=== PATIENT | male | born 1990 | race Two or more races ===

== ENCOUNTER 2018-09-12 03:43 | Emergency (ER) | payer SELFPAY ==
[~2018-09-12] VITALS: Ht 172.7 cm; Wt 62.1 kg
[2018-09-12 06:29] VITALS: BP 130/82
[2018-09-12 06:52] LABS: Alcohol, Urine < 3.0 mg/dL (0-5); Amphetamine Screen, Urine NEGATIVE (NEGATIVE); Barbiturate Scree,Urine NEGATIVE (NEGATIVE); Benzodiazephine Screen, Urine NEGATIVE (NEGATIVE); Cannabinoid Screen, Urine POSITIVE (NEGATIVE); Cocaine Screen, Urine NEGATIVE (NEGATIVE); Opiate Scree,Urine NEGATIVE (NEGATIVE); Phencyclidine Screen, Urine NEGATIVE (NEGATIVE)
[2018-09-12] MEDS ORDERED: MIRT15TA3 PO (06:58)
[2018-09-12] MEDS ORDERED: HYDR-4296 PO (07:00)
[2018-09-12] MEDS ORDERED: CITA10TA70 PO (07:00)
[2018-09-12] MEDS ORDERED: BUSP10TA90 PO (07:00)
[2018-09-12] MEDS ORDERED: BUSP5TAB51 PO (07:00)
== END 2018-09-12 07:16 | disposition home or self-care (01) ==
LOC: ER 03:48
DX: F12.10 Cannabis abuse, uncomplicated (principal)
CPT/HCPCS: 80307

== ENCOUNTER 2018-09-13 14:30 | Emergency (ER) | payer SELFPAY ==
[~2018-09-13] VITALS: Ht 180.3 cm; Wt 62.1 kg
[~2018-09-13 14:30] MED LIST: BUSP10TA90 PO; BUSP5TAB51 PO; CITA10TA70 PO; HYDR-4296 PO; MIRT15TA3 PO
[2018-09-13 14:44] VITALS: BP 134/86
== END 2018-09-13 14:50 | disposition left against medical advice (07) ==
LOC: ER 14:30 → EDBD 14:30 → ER 14:50
DX: R45.851 Suicidal ideations (principal); Z53.21 Procedure and treatment not carried out due to patient leaving prior to being seen by health care provider

== ENCOUNTER 2024-11-18 15:54 | Emergency (ER) | payer MEDICAID, OTHER ==
[~2024-11-18] VITALS: Ht 170.2 cm; Wt 68.1 kg
[~2024-11-18 15:54] MED LIST changes: +CITA10TA5 PO; -CITA10TA70 PO; -HYDR-4296 PO; +HYDR25TA88 PO; -MIRT15TA3 PO; +MIRT1TAB38 PO
[2024-11-18 16:03] VITALS: BP 139/92; PULSE 90; RESP 17; O2SAT 98
--- NOTE | 2024-11-18 16:45 | ED.PDOC ---
HPI Comments 34 y.o male presents to the ED via EMS for a chief complaint of substernal chest pain that presented today. Patient describes pain as a burning sensation, is constant, non radiating and rating a 2/10 on the pain scale. Patient received one dose of NTG by EMS which brought pain down to a mild 1/10. Patient denies any cardiac history, SOB, nausea, vomiting, chills, fever or leg swelling. Chief Complaint: Chest Pain Time Seen by MD: 16:34 Primary Care Provider: DR LAZO Reviewed Notes: Nurses Notes, Medications, Allergies Allergies: Coded Allergies: NO KNOWN ALLERGIES (Unverified , 09/12/18) Home Meds Reported Medications Citalopram Hydrobromide (Citalopram Hydrobromide) 10 Mg Tab, 10 MG PO DAILY for 30 Days, MG 09/12/18 Hydralazine Hcl (Hydralazine Hcl) 25 Mg Tab, 25 MG PO QID for 30 Days, MG 09/12/18 Buspirone Hcl (Buspirone Hcl) 10 Mg Tab, 10 MG PO HS for 30 Days, MG 09/12/18 Buspirone Hcl (Buspirone Hcl) 5 Mg Tab, 5 MG PO Q12HR for 30 Days, MG 09/12/18 Mirtazapine (Mirtazapine Oral Disintegrating Tablet) 15 Mg Tab, 15 MG PO HS, TAB 09/12/18 Information Source: Patient Mode of Arrival: EMS Severity: Moderate Timing: Hours Duration: Since onset Location: Substernal Radiation: No Radiation Quality: Burning Onset: At Rest Cardiac Risk Factors: None PE Risk Factors: None History of: None Modifying Factors: Nothing Past Medical History PAST MEDICAL HISTORY: Anxiety, Depression, Schizophrenia Family History Family History: Unknown Social History Smoker: Non-Smoker Alcohol: Denies ETOH Use Drugs: Marijuana Lives In: Home Constitutional: denies: chills, diaphoresis, fatigue, fever, malaise, sweats, weakness, others EENTM: denies: blurred vision, double vision, ear bleeding, ear discharge, ear drainage, ear pain, ear ringing, eye pain, eye redness, hearing loss, mouth pain , mouth swelling, nasal discharge, nose bleeding, nose congestion, nose pain, photophobia, tearing, throat pain, throat swelling, voice changes, others Respiratory: denies: cough, hemoptysis, orthopnea, SOB at rest, shortness of breath, SOB with excertion, stridor, wheezing, others Cardiovascular: reports: chest pain; denies: dizzy spells, diaphoresis, Dyspnea on exertion, edema, irregular heart beat, left arm pain, lightheadedness, palpitations, PND, syncope, others Gastrointestinal: denies: abdomen distended, abdominal pain, blood streaked bowels, constipated, diarrhea, dysphagia, difficulty swallowing, hematemesis, melena, nausea, poor appetite, poor fluid intake, rectal bleeding, rectal pain, vomiting, others Genitourinary: denies: burning, dysuria, flank pain, frequency, hematuria, incontinence, penile discharge, penile sore, pain, testicle pain, testicle swelling, urgency, others Neurological: denies: dizziness, fainting, headache, left sided numbness, left sided weakness, numbness, paresthesia, pre-existing deficit, right sided numbness, right sided weakness, seizure, speech problems, tingling, tremors, weakness, others Musculoskeletal: denies: back pain, gout, joint pain, joint swelling, muscle pain, muscle stiffness, neck pain, others Integumetry: denies: bruises, change in color, change in hair/nails, dryness, laceration, lesions, lumps, rash, wounds, others Allergic/Immunocompromised: denies: Difficulty Healing, Frequent Infections, Hives, Itching, others Hematologic/Lymphatic: denies: anemia, blood clots, easy bleeding, easy bruising, swollen glands, others Endocrine: denies: excessive hunger, excessive sweating, excessive thirst, excessive urination, flushing, intolerance to cold, intolerance to heat, unexplained weight gain, unexplained weight loss, others Psychiatric: denies: anxiety, bipolar disorder, depression, hopeless, panic disorder, schizophrenia, sleepless, suicidal, others All Other Systems: Reviewed and Negative Physical Exam General Appearance: No Apparent Distress, Normal HEENT: Normal ENT Inspection, Pharynx Normal, TMs Normal Neck: Full Range of Motion, Non-Tender, Normal, Normal Inspection Respiratory: Chest Non-Tender, Lungs Clear, No Accessory Muscle Use, No Respiratory Distress, Normal Breath Sounds Cardiovascular: No Edema, No JVD, No Murmur, No Gallop, Normal Peripheral Pulses, Regular Rate/Rhythm Breast Exam: Deferred Gastrointestinal: No Organomegaly, Non Tender, No Pulsatile Mass, Normal Bowel Sounds, Soft Genitalia: Deferred Pelvic: Deferred Rectal: Deferred Extremities: No calf tenderness, Normal capillary refill, Normal inspection, Normal range of motion, Non-tender, No pedal edema Musculoskeletal : Apperance: Normal Neurologic: Alert, energy crop farmer II-XII nml as Tested, No Motor Deficits, Normal Affect, Normal Mood, No Sensory Deficits Cerebellar Function: Normal Reflexes: Normal Skin: Dry, Normal Color, Warm Lymphatic: No Adenopathy Was a procedure done? Was a procedure done?: No CP Differential Dx Differential Diagnosis: N/A Differential Diagnosis: Angina, Chest Wall Pain, Esophageal reflux/spasm, Gastritis, Myocardial Infarction, Pericarditis X-Ray, Labs, Meds, VS Vital Signs Date Time Temp Pulse Resp B/P (MAP) Pulse Ox O2 Delivery O2 Flow Rate FiO2 11/18/24 16:03 98.1 90 17 139/92 (108) 98 11/18/24 16:00 72 Lab Test 11/18/24 16:48 Range/Units Sodium Level Pending Potassium Level Pending Chloride Level Pending Carbon Dioxide Level Pending Anion Gap Pending Blood Urea Nitrogen Pending Creatinine Pending Glomerular Filtration Rate Calc Pending BUN/Creatinine Ratio Pending Serum Glucose Pending Calcium Level Pending Magnesium Level Pending Total Bilirubin Pending Aspartate Amino Transferase (AST) Pending Alanine Aminotransferase (ALT) Pending Alkaline Phosphatase Pending Troponin I High Sensitivity Pending Total Protein Pending Albumin Pending X-Ray, Labs, Meds, VS Comment This 34-year-old male presents secondary to midsternal chest pain I was minimal. He was given nitro and route with near-complete resolution of his symptoms. At shift change, measure his labs have not resulted. Patient was signed out to the oncoming physician for final disposition Time of 1ST Reevaluation: 16:40 Reevaluation 1ST: Unchanged Patient Education/Counseling: Diagnosis, Treatment, Prognosis Family Education/Counseling: No Family Present Additional Information The following tests were ordered, and results were reviewed by me: LAB, CXR, EKG I reviewed and agreed with the following test results read by other providers:CXR I discussed treatment and results with medical personnel and patient [address] [address] Ph: [phone] DIAGNOSTIC IMAGING Diagnostic Imaging Report : [id number] Signed PATIENT: YAEL NAYAK ACCT: [id number] UNIT: [id number] : 1990 LOC: ER ROOM / BED: / AGE / SEX: 34 / M ADM STATUS: REG ER SERVICE 16 ORDERING PHYSICIAN: TANMAY PATEL MD PROCEDURE(s): CXRP - CHEST PORTABLE REASON: COUGH ORDER NUMBER(s): [id number], ACCESSION NUMBER(s): [id number] CHEST PORTABLE, HISTORY: COUGH COMPARISON: None None TECHNICAL DATA: 1 view of the chest was obtained. FINDINGS: Lines and tubes: None Cardiomediastinal silhouette: normal Pulmonary vasculature: normal Lung expansion: normal Lung airspace: normal Lung interstitium: normal Pleura: normal Pneumothorax: no Bones: Unremarkable Other: no IMPRESSION: No acute intrathoracic abnormality. ATED BY: ARNAUD QUINTERO MD DICTATED DATE/TIME: 11/18/24 164 SIGNED BY: ARNAUD QUINTERO MD SIGNED DATE/TIME: 11/18/24 164 CC: Critical Care Note Critical Care Time?: No Stability Stability form required: No Heart Score Heart Score: Heart Score Response (Comments) Value History N/A 0 EKG Normal 0 Age <45 0 Risk Factors No known risk factors 0 Troponin N/A 0 Total 0 I personally scribed for TANMAY PATEL MD ([email or web address]) on 11/18/24 at 16:45. Electronically submitted by Lori Mittal ([email or web address]). I personally scribed for TANMAY PATEL MD ([email or web address]) on 11/18/24 at 17:36. Electronically submitted by Lori Mittal ([email or web address]). TANMAY PATEL MD Nov 18, 2024 16:45
[2024-11-18 18:01] LABS: Alanine Aminotransferase 39 U/L (7-40); Albumin 4.7 g/dL (3.2-4.8); Alkaline Phosphatase 83 U/L (46-116); Anion Gap 5 (5-15); Aspartate Aminotransferase 22 U/L (13-40); BUN/Creatinine Ratio 8.6 (10.0-20.0); Bilirubin, Total 0.4 mg/dL (0.2-1.0); Blood Urea Nitrogen 9 mg/dL (9-23); Calcium 10.1 mg/dL (8.7-10.4); Chloride 103 mmol/L (98-107); Magnesium 2.3 mg/dL (1.6-2.6); Potassium 3.9 mmol/L (3.5-5.1); Sodium 139 mmol/L (136-145); Total Protein 7.9 g/dL (5.7-8.2)
[2024-11-18 18:25] LABS: Basophils # (auto) 0 10 ^3/uL (0-0.2); Eosinophils # (auto) 0.1 10 ^3/uL (0-0.8); Eosinophils % (auto) 2.1 % (0.0-7.0); Hematocrit 52.3 % (41.0-53.0); Hemoglobin 17.5 g/dL (13.5-17.5); Lymphocytes # (auto) 1.6 10 ^3/uL (0.4-5.4); Mean Corpuscular Hemoglobin 30.2 pg (28.0-32.0); Mean Corpuscular Hgb Conc. 33.5 g/dL (32.0-36.0); Mean Corpuscular Volume 90.1 fL (80.0-100.0); Monocytes # (auto) 0.4 10 ^3/uL (0-1.3); Monocytes % (auto) 8.4 % (0.0-12.0); Neutrophils # (auto) 2.6 10 ^3/uL (1.6-8.6); Neutrophils % (auto) 54.5 % (37.0-80.0); Nucleated Red Blood Cells % 0.1 %; Platelet Count (auto) 187 10^3/uL (140-450); Red Cell Distribution Width 14.1 % (11.8-14.3); White Blood Cell 4.8 10^3/uL (4.4-10.8)
[2024-11-18 18:49] LABS: Carbon Dioxide 31 mmol/L (20-31); Glucose 122 mg/dL (74-106)
[2024-11-18 20:30] LABS: INR 1.07 (0.9-1.15); Partial Thromboplastin Time 29.5 SEC (24.5-34.5); Prothrombin Time 11.3 sec (9.3-11.8)
--- NOTE | 2024-11-22 13:07 | ECG ---
[facility] Test Date: 2024-11-18 Test Time: 15:58:17 Pat Name: YAEL GREER Department: ED Room: Gender: M Communicable Disease Specialist: AARON : 1990 Requested By: JANNIE HDZ Order Number: [id number] Reading MD: Ankit Mas Measurements Intervals [place] Rate: 72 P: 66 MO: 140 QRS: 73 QRSD: 78 T: 57 QT: 360 QTc: 394 Interpretive Statements Sinus rhythm ST elev, probable normal early repol pattern Baseline wander in lead(s) V6 Electronically Signed On 11-22-2024 22:14:53 PST by Ankit aMs Please click the below link to view image of tracing.
== END 2024-11-18 23:33 | disposition home or self-care (01) ==
LOC: EDUNIT# 15:54 → EDBD 15:54 → ER 16:11
DX: R07.89 Other chest pain (principal); F32.A Depression, unspecified; F20.9 Schizophrenia, unspecified; F41.9 Anxiety disorder, unspecified; Z79.899 Other long term (current) drug therapy
CPT/HCPCS: 36415; 71045; 80053; 83735; 83880; 84484; 85025; 85379; 85610; 85730; 93005

== ENCOUNTER 2025-05-10 12:31 | Emergency (ER) | payer MEDICAID ==
[~2025-05-10] VITALS: Ht 172.7 cm; Wt 70.0 kg
--- NOTE | 2025-05-10 13:55 | ED.PDOC ---
History of Present Illness HPI Comments 34-year-old male presents with a chief complaint of back pain x 1.5 weeks. Patient states that his pain is localized to his midthoracic region, nonradiating, describes as sharp, and states that his pain is intermittent. Patient denies traumatic injury to his back. Patient reports that he has chronic back pain. Patient has been self-medicating with ibuprofen 600mg BID. Denies history of chronic steroid use or history of osteoporosis Denies any history of cancer Denies fevers chills night sweats nausea vomiting unintentional weight loss Denies IV drug use history of HIV/TB Denies abdominal "tearing" pain Denies syncope Denies urinary incontinence or urinary changes Denies numbness tingling of the groin or inner thigh Denies previous back procedure or surgery Chief Complaint: Back Pain Time Seen by MD: 13:41 Primary Care Provider: EVANGELISTA Yadav Notes: Nurses Notes, Medications, Allergies Allergies: Coded Allergies: NO KNOWN ALLERGIES (Unverified , 09/12/18) Home Meds Active Scripts Lidocaine (LIDODERM 5% TOPICAL PATCH) 1 Patch Ph, 1 PATCH TOP DAILY for 30 Days, #30 PATCH 0 Refills Prov:CLAUDIA WONG NP 05/10/25 Methocarbamol (Methocarbamol) 500 Mg Tab, 500 MG PO Q8HP PRN for 10 Days, #30 TAB 0 Refills Prov:CLAUDIA WONG NP 05/10/25 Reported Medications Citalopram Hydrobromide (Citalopram Hydrobromide) 10 Mg Tab, 10 MG PO DAILY for 30 Days, MG 09/12/18 Hydralazine Hcl (Hydralazine Hcl) 25 Mg Tab, 25 MG PO QID for 30 Days, MG 09/12/18 Buspirone Hcl (Buspirone Hcl) 10 Mg Tab, 10 MG PO HS for 30 Days, MG 09/12/18 Buspirone Hcl (Buspirone Hcl) 5 Mg Tab, 5 MG PO Q12HR for 30 Days, MG 09/12/18 Mirtazapine (Mirtazapine Oral Disintegrating Tablet) 15 Mg Tab, 15 MG PO HS, TAB 09/12/18 Information Source: Patient Mode of Arrival: Ambulatory Severity: Moderate Timing: Days Duration: Since onset Prehospital treatment: None Past Medical History PAST MEDICAL HISTORY: Anxiety, Depression, Schizophrenia Family History Family History: Unknown Social History Smoker: Non-Smoker Alcohol: Denies ETOH Use Drugs: Marijuana Lives In: Home Constitutional: denies: chills, diaphoresis, fatigue, fever, malaise, sweats, weakness, others EENTM: denies: blurred vision, double vision, ear bleeding, ear discharge, ear drainage, ear pain, ear ringing, eye pain, eye redness, hearing loss, mouth pain, mouth swelling, nasal discharge, nose bleeding, nose congestion, nose pain, photophobia, tearing, throat pain, throat swelling, voice changes, others Respiratory: denies: cough, hemoptysis, orthopnea, SOB at rest, shortness of breath, SOB with excertion, stridor, wheezing, others Cardiovascular: denies: chest pain, dizzy spells, diaphoresis, Dyspnea on exertion, edema, irregular heart beat, left arm pain, lightheadedness, palpitations, PND, syncope, others Gastrointestinal: denies: abdomen distended, abdominal pain, blood streaked bowels, constipated, diarrhea, dysphagia, difficulty swallowing, hematemesis, melena, nausea, poor appetite, poor fluid intake, rectal bleeding, rectal pain, vomiting, others Genitourinary: denies: burning, dysuria, flank pain, frequency, hematuria, incontinence, penile discharge, penile sore, pain, testicle pain, testicle swelling, urgency, others Neurological: denies: dizziness, fainting, headache, left sided numbness, left sided weakness, numbness, paresthesia, pre-existing deficit, right sided numbness, right sided weakness, seizure, speech problems, tingling, tremors, weakness, others Musculoskeletal: reports: back pain; denies: gout, joint pain, joint swelling, muscle pain, muscle stiffness, neck pain, others Integumetry: denies: bruises, change in color, change in hair/nails, dryness, laceration, lesions, lumps, rash, wounds, others Allergic/Immunocompromised: denies: Difficulty Healing, Frequent Infections, Hives, Itching, others Hematologic/Lymphatic: denies: anemia, blood clots, easy bleeding, easy bruising, swollen glands, others Endocrine: denies: excessive hunger, excessive sweating, excessive thirst, excessive urination, flushing, intolerance to cold, intolerance to heat, unexpla ined weight gain, unexplained weight loss, others Psychiatric: denies: anxiety, bipolar disorder, depression, hopeless, panic disorder, schizophrenia, sleepless, suicidal, others All Other Systems: Reviewed and Negative Physical Exam General Appearance: No Apparent Distress, Normal HEENT: Normal ENT Inspection, Pharynx Normal, TMs Normal Neck: Full Range of Motion, Non-Tender, Normal, Normal Inspection Respiratory: Chest Non-Tender, Lungs Clear, No Accessory Muscle Use, No Respiratory Distress, Normal Breath Sounds Cardiovascular: No Murmur, No Gallop, Regular Rate/Rhythm Breast Exam: Deferred Gastrointestinal: No Organomegaly, Non Tender, No Pulsatile Mass, Normal Bowel Sounds, Soft Genitalia: Deferred Pelvic: Deferred Rectal: Deferred Extremities: No calf tenderness, Normal capillary refill, Normal inspection, Normal range of motion, Non-tender, No pedal edema Musculoskeletal : Apperance: Normal Neurologic: Alert, r&d engineer II-XII nml as Tested, No Motor Deficits, Normal Affect, Normal Mood, No Sensory Deficits Cerebellar Function: Normal Reflexes: Normal Skin: Dry, Normal Color, Warm Lymphatic: No Adenopathy Was a procedure done? Was a procedure done?: No Differential Dx Considerations may include: Musculoskeletal, strain X-Ray, Labs, Meds, VS Vital Signs Date Time Temp Pulse Resp B/P (MAP) Pulse Ox O2 Delivery O2 Flow Rate FiO2 05/10/25 14:01 78 16 97 Room Air 05/10/25 14:01 98.7 78 16 111/83 (92) 97 98.7 05/10/25 12:41 98.7 78 16 111/83 (92) 97 98.7 Current Medications Medications (Trade) Dose Ordered Sig/Vinh Route Start Time Stop Time Status Last Admin Ketorolac Tromethamine (Toradol Injection) 60 mg ONCE ONCE IM 05/10/25 14:00 05/10/25 14:01 DC 05/10/25 14:08 Acetaminophen/ Hydrocodone Bitart ([place] 7.5/325MG Tab) 1 tab ONCE ONCE PO 05/10/25 14:00 05/10/25 14:01 DC 05/10/25 14:08 X-Ray, Labs, Meds, VS Comment 34-year-old male presents with a chief complaint of back pain x 1.5 weeks. Patient arrives alert and oriented, ABC's intact, afebrile, vital signs stable, saturating well in room air I considered cauda equina, spinal cord compression, vertebral malignancy/mets, acute spinal fracture, vertebral osteomyelitis, epidural abscess, infected or obstructed kidney stone, however this is less likely as the patient does not present with lower back pain red flags symptoms such as bowel or bladder dysfunction, saddle anesthesia, paresthesia, and without any history of m alignancy or recent back trauma or spinal interventions. Therefore further imaging studies were not indicated on today's visit. Presentation most consistent with nonemergent musculoskeletal etiology versus nonemergent disc herniation. Disposition: Discharge. Strict return precautions discussed with the patient with full understanding. Supportive care advised (rest, ice, heat, NSAIDs, stretching exercises) Massage muscles with cold pack or ice for 20 minutes 4 times per day. Usually most useful if there is swelling during the first 48 hours Heating pad on the most painful area for 20 minutes to relieve muscle spasm Sleep and the most comfortable sleeping position (usually on the side with knees bent) Light stretching, no strenuous activity, avoid frequent bending, avoid carrying heavy objects Discussed possible benefits of yoga and acupuncture Return precautions discussed including Inability to walk/bear weight Paresthesia/weakness/leg pain Fecal/urinary incontinence Any worsening symptoms Additional MDM Review of External, Non-ED records: External records reviewed. Discussion with independent historian (EMS, family) history obtained from the patient/parents (if applicable) at bedside Chronic conditions affecting care: None Social determinants of health affecting care: None Consideration of admission (observation or admission): I considered escalation of care to admission for this patient, however given the reassuring workup, the patient is safe for outpatient management. Time of 1ST Reevaluation: 14:11 Reevaluation 1ST: Unchanged Patient Education/Counseling: Diagnosis, Treatment, Prognosis Family Education/Counseling: No Family Present SEPSIS Sepsis Screen Date sepsis recognized/suspect: May 10, 2025 Time Sepsis recognized/suspect: 1236 Recent Procedure: No On Antibiotic Therapy: No Respiratory Rate >20: No Heart Rate >90: No Temp<36 C (96.8 F) or >38.3 C: No SBP <90 or MAP <65 mmHG: No New Acute Mental Status Change: No Is the patient on CPAP, BIPAP,: No Orders/Vitals/Labs Vital Signs Date Time Temp Pulse Resp B/P (MAP) Pulse Ox O2 Delivery O2 Flow Rate FiO2 05/10/25 14:01 78 16 97 Room Air 05/10/25 14:01 98.7 78 16 111/83 (92) 97 98.7 05/10/25 12:41 98.7 78 16 111/83 (92) 97 98.7 Departure 1 Departure Time of Disposition: 14:09 Impression: Primary Impression: Dorsalgia Disposition: 01 HOME / SELF CARE / HOMELESS Condition: Stable e-Prescriptions Lidocaine (LIDODERM 5% TOPICAL PATCH) 1 Patch Ph 1 PATCH TOP DAILY for 30 Days, #30 PATCH 0 Refills Prov: CLAUDIA WONG NP 05/10/25 Methocarbamol (Methocarbamol) 500 Mg Tab 500 MG PO Q8HP PRN for 10 Days, #30 TAB 0 Refills Prov: CLAUDIA WONG NP 05/10/25 Discharged With: Self Critical Care Note Critical Care Time?: No Stability Stability form required: No Heart Score Heart Score: Heart Score Response (Comments) Value History N/A 0 EKG N/A 0 Age N/A 0 Risk Factors N/A 0 Troponin N/A 0 Total 0 I personally scribed for CLAUDIA WONG NP ([email or web address]) on 05/10/25 at 13:55. Electronically submitted by Zan Oliveira ([email or web address]). CLAUDIA WONG NP May 10, 2025 13:55
[2025-05-10 14:01] VITALS: BP 111/83; PULSE 78; RESP 16; TEMP 98.7; O2SAT 97
[2025-05-10] MEDS: KETOROLAC TROMETH 60MG/2ML VIAL IM ONE (14:08)
[2025-05-10] MEDS: HYDROcodone-ACET 7.5/325MG TAB PO ONE (14:08)
[2025-05-10] MEDS ORDERED: LIDO5DIS21 TOP (14:10)
[2025-05-10] MEDS ORDERED: METH-1181 PO (14:10)
== END 2025-05-10 14:21 | disposition home or self-care (01) ==
LOC: ER 12:31
DX: G89.29 Other chronic pain (principal); M54.9 Dorsalgia, unspecified; F41.9 Anxiety disorder, unspecified; F32.A Depression, unspecified; F20.9 Schizophrenia, unspecified; Z79.899 Other long term (current) drug therapy
CPT/HCPCS: 96372; 99283; J1885

== ENCOUNTER 2025-05-12 05:21 | Emergency (ER) | payer MEDICAID ==
[~2025-05-12] VITALS: Ht 188 cm; Wt 68.0 kg
[~2025-05-12 05:21] MED LIST changes: +LIDO5DIS21 TOP; +METH-1181 PO
--- NOTE | 2025-05-12 07:18 | ED.PDOC ---
Back pain HPI HPI Comments 34 year old male presents to the ED via EMS with a chief complaint of back pain onset today (05/12/25) about 5 hours prior to ED arrival. Patient states he has chronic back pain, noticed pain has worsen. He was seen in this ED on 05/10/25, was given medication, had slight improvement of symptoms. PMHx schizophrenia, depression, anxiety. Denies fall, injury, headache, dizziness, nausea/vomiting, numbness/tingling. No other symptoms or modifying factors present at this time. Chief Complaint: Back Pain Time Seen by MD: 07:00 Primary Care Provider: EVANGELISTA Yadav Notes: Medications, Allergies Allergies: Coded Allergies: NO KNOWN ALLERGIES (Unverified , 09/12/18) Home Meds Active Scripts Lidocaine (LIDODERM 5% TOPICAL PATCH) 1 Patch Ph, 1 PATCH TOP DAILY for 30 Days, #30 PATCH 0 Refills Prov:CLAUDIA WONG FOLDER OPERATOR 05/10/25 Methocarbamol (Methocarbamol) 500 Mg Tab, 500 MG PO Q8HP PRN for 10 Days, #30 TAB 0 Refills Prov:CLAUDIA WONG FOLDER OPERATOR 05/10/25 Reported Medications Citalopram Hydrobromide (Citalopram Hydrobromide) 10 Mg Tab, 10 MG PO DAILY for 30 Days, MG 09/12/18 Hydralazine Hcl (Hydralazine Hcl) 25 Mg Tab, 25 MG PO QID for 30 Days, MG 09/12/18 Buspirone Hcl (Buspirone Hcl) 10 Mg Tab, 10 MG PO HS for 30 Days, MG 09/12/18 Buspirone Hcl (Buspirone Hcl) 5 Mg Tab, 5 MG PO Q12HR for 30 Days, MG 09/12/18 Mirtazapine (Mirtazapine Oral Disintegrating Tablet) 15 Mg Tab, 15 MG PO HS, TAB 09/12/18 Information Source: Patient, Emergency Med Personnel Mode of Arrival: EMS Timing: Hours Duration: Since onset Location of Back pain: (B) Lower back Severity: Moderate Prehospital treatment: None Quality: Sharp Onset: Spontaneous History of: Chronic Back Pain Modifying Factors: Nothing Past Medical History PAST MEDICAL HISTORY: Anxiety, Depression, Schizophrenia Family History Family History: Unknown Social History Smoker: Non-Smoker Alcohol: Denies ETOH Use Drugs: Marijuana Lives In: Home Constitutional: denies: chills, diaphoresis, fatigue, fever, malaise, sweats, weakness, others EENTM: denies: blurred vision, double vision, ear bleeding, ear discharge, ear drainage, ear pain, ear ringing, eye pain, eye redness, hearing loss, mouth pain, mouth swelling, nasal discharge, nose bleeding, nose congestion, nose pain, photophobia, tearing, throat pain, throat swelling, voice changes, others Respiratory: denies: cough, hemoptysis, orthopnea, SOB at rest, shortness of breath, SOB with excertion, stridor, wheezing, others Cardiovascular: denies: chest pain, dizzy spells, diaphoresis, Dyspnea on exertion, edema, irregular heart beat, left arm pain, lightheadedness, palpitations, PND, syncope, others Gastrointestinal: denies: abdomen distended, abdominal pain, blood streaked bowels, constipated, diarrhea, dysphagia, difficulty swallowing, hematemesis, melena, nausea, poor appetite, poor fluid intake, rectal bleeding, rectal pain, vomiting, others Genitourinary: denies: burning, dysuria, flank pain, frequency, hematuria, incontinence, penile discharge, penile sore, pain, testicle pain, testicle swelling, urgency, others Neurological: denies: dizziness, fainting, headache, left sided numbness, left sided weakness, numbness, paresthesia, pre-existing deficit, right sided numb ness, right sided weakness, seizure, speech problems, tingling, tremors, weakness, others Musculoskeletal: reports: back pain; denies: gout, joint pain, joint swelling, muscle pain, muscle stiffness, neck pain, others Integumetry: denies: bruises, change in color, change in hair/nails, dryness, laceration, lesions, lumps, rash, wounds, others Allergic/Immunocompromised: denies: Difficulty Healing, Frequent Infections, Hives, Itching, others Hematologic/Lymphatic: denies: anemia, blood clots, easy bleeding, easy bruising, swollen glands, others Endocrine: denies: excessive hunger, excessive sweating, excessive thirst, excessive urination, flushing, intolerance to cold, intolerance to heat, unexplained weight gain, unexplained weight loss, others Psychiatric: denies: anxiety, bipolar disorder, depression, hopeless, panic disorder, schizophrenia, sleepless, suicidal, others All Other Systems: Reviewed and Negative Physical Exam General Appearance: No Apparent Distress, Normal HEENT: Normal ENT Inspection, Pharynx Normal, TMs Normal Neck: Full Range of Motion, Non-Tender, Normal, Normal Inspection Respiratory: Chest Non-Tender, Lungs Clear, No Accessory Muscle Use, No Respiratory Distress, Normal Breath Sounds Cardiovascular: No Edema, No JVD, No Murmur, No Gallop, Normal Peripheral Pulses, Regular Rate/Rhythm Breast Exam: Deferred Gastrointestinal: No Organomegaly, Non Tender, No Pulsatile Mass, Normal Bowel Sounds, Soft Genitalia: Deferred Pelvic: Deferred Rectal: Deferred Extremities: No calf tenderness, Normal capillary refill, Normal inspection, Normal range of motion, Non-tender, No pedal edema Musculoskeletal : Apperance: Normal Neurologic: Alert, buffing and polishing wheel repairer II-XII nml as Tested, No Motor Deficits, Normal Affect, Normal Mood, No Sensory Deficits Cerebellar Function: Normal Reflexes: Normal Skin: Dry, Normal Color, Warm Lymphatic: No Adenopathy Was a procedure done? Was a procedure done?: No Back Pain Differential Dx Differential Diagnosis: Musculoskeletal Pain X-Ray, Labs, Meds, VS Vital Signs Date Time Temp Pulse Resp B/P (MAP) Pulse Ox O2 Delivery O2 Flow Rate FiO2 05/12/25 07:32 98.1 05/12/25 07:24 63 16 97 Room Air 05/12/25 07:24 98.1 63 16 125/81 (96) 97 98.1 05/12/25 05:26 98.3 62 16 134/85 (101) 99 98.3 Current Medications Medications (Trade) Dose Ordered Sig/Vinh Route Start Time Stop Time Status Last Admin Acetaminophen (Tylenol Tablet) 650 mg ONCE ONCE PO 05/12/25 07:15 05/12/25 07:16 DC 05/12/25 07:[address] [address] Ph: [phone] DIAGNOSTIC IMAGING Diagnostic Imaging Report : [id number] Signed PATIENT: YAEL GREERACCT: [id number] UNIT: [id number] : 1990 LOC: ER ROOM / BED: / AGE / SEX: 34 / M ADM STATUS: REG ER SERVICE 5 ORDERING PHYSICIAN: MAGNO MERCADO MD PROCEDURE(s): LUMB2 - LUMBAR SPINE 3 VIEW REASON: lumbar pain ORDER NUMBER(s): [id number], ACCESSION NUMBER(s): [id number] INDICATION: lumbar pain COMPARISON: None TECHNIQUE: 2 views of the lumbar spine were obtained. FINDINGS: The lumbar vertebral alignment is normal. The intervertebral disc spaces are well-maintained. No significant facet arthropathy is noted. No acute fracture, vertebral compression deformity or aggressive osseous le sions. The paravertebral soft tissues are grossly unremarkable. IMPRESSION: 1. No acute fracture. ATED BY: JASMYN ROE MD DICTATED DATE/TIME: 05/12/25801 SIGNED BY: JASMYN ROE MD SIGNED DATE/TIME: 05/12/25801 CC: Time of 1ST Reevaluation: 07:30 Reevaluation 1ST: Unchanged Patient Education/Counseling: Diagnosis, Treatment, Prognosis Family Education/Counseling: No Family Present SEPSIS Sepsis Screen Date sepsis recognized/suspect: May 12, 2025 Time Sepsis recognized/suspect: 527 Recent Procedure: No On Antibiotic Therapy: No Respiratory Rate >20: No Heart Rate >90: No Temp<36 C (96.8 F) or >38.3 C: No SBP <90 or MAP <65 mmHG: No New Acute Mental Status Change: No Is the patient on CPAP, BIPAP,: No Physician Orders Lumbar Spine 3 View (05/12/25 07:06) Cyclobenzaprine Tablet (Flexeril Tablet) (05/12/25 08:45) Vital Signs Date Time Temp Pulse Resp B/P (MAP) Pulse Ox O2 Delivery O2 Flow Rate FiO2 05/12/25 07:32 98.1 05/12/25 07:24 63 16 97 Room Air 05/12/25 07:24 98.1 63 16 125/81 (96) 97 98.1 05/12/25 05:26 98.3 62 16 134/85 (101) 99 98.3 Medications Medications Dose Ordered Sig/Vinh Route Start Time Stop Time Status Last Admin Dose Admin Acetaminophen 650 mg ONCE ONCE PO 05/12/25 07:15 05/12/25 07:16 DC 05/12/25 07:32 Departure 1 Departure Time of Disposition: 08:43 (Patient has a lumbar strain. We will discharge patient home with outpatient follow up) Impression: Primary Impression: Acute lumbar myofascial strain Qualified Codes: S39.012A - Strain of muscle, fascia and tendon of lower back, initial encounter Disposition: HOME / SELF CARE / HOMELESS Condition: Stable Referrals: SERA GUTIERREZ MD Additional Instructions: You likely have musculoskeletal strain. You were referred to our spine doctor. Please call for an appointment. For pain you can take the followinam: Ibuprofen 400mg with food Noon: Acetaminophen 1000mg 4pm: Ibuprofen 400mg with food 8pm: Acetaminophen 1000mg Your prescribed muscle relaxers. Please take as directed. You should follow up with your regular doctor within one week to ensure you are doing better. If your symptoms worsen or you have any other concerns then please return to the ER. e-Prescriptions Cyclobenzaprine Hcl (Cyclobenzaprine Hcl) 5 Mg Tab 1 TAB PO TID PRN for 5 Days, #15 TAB Prov: MAGNO MERCADO MD 05/12/25 Discharged With: Self Critical Care Note Critical Care Time?: No Stability Stability form required: No I personally scribed for MAGNO MERCADO MD ([email or web address]) on 05/12/25 at 07:18. Electronically submitted by Hien Hubbard ([email or web address]). I personally scribed for MAGNO MERCADO MD ([email or web address]) on 05/12/25 at 08:31. Electronically submitted by Hien Hubbard ([email or web address]). MAGNO MERCADO MD May 12, 2025 07:18
[2025-05-12] MEDS: ACETAMINOPHEN 325 MG TAB PO ONE (07:32)
--- NOTE | 2025-05-12 08:04 | DVH ---
INDICATION: lumbar pain COMPARISON: None TECHNIQUE: 2 views of the lumbar spine were obtained. FINDINGS: The lumbar vertebral alignment is normal. The intervertebral disc spaces are well-maintained. No significant facet arthropathy is noted. No acute fracture, vertebral compression deformity or aggressive osseous lesions. The paravertebral soft tissues are grossly unremarkable. IMPRESSION: 1. No acute fracture.
[2025-05-12] MEDS ORDERED: CYCL-837 PO (08:45)
[2025-05-12] MEDS: CYCLOBENZAPRINE HCL 10 MG TAB PO ONE (09:15)
[2025-05-12 09:28] VITALS: BP 127/82; PULSE 82; RESP 17; TEMP 97.6; O2SAT 100
== END 2025-05-12 09:32 | disposition home or self-care (01) ==
LOC: EDBD 05:21 → ER 05:21
DX: S39.012A Strain of muscle, fascia and tendon of lower back, initial encounter (principal); G89.29 Other chronic pain; F20.9 Schizophrenia, unspecified; F32.A Depression, unspecified; F12.90 Cannabis use, unspecified, uncomplicated; F41.9 Anxiety disorder, unspecified; Z79.899 Other long term (current) drug therapy; X58.XXXA Exposure to other specified factors, initial encounter; Y93.89 Activity, other specified; Y92.89 Other specified places as the place of occurrence of the external cause; Y99.8 Other external cause status
CPT/HCPCS: 72100

== ENCOUNTER 2025-05-24 09:54 | Emergency (ER) | payer MEDICAID ==
[~2025-05-24] VITALS: Ht 172.7 cm; Wt 65.0 kg
[~2025-05-24 09:54] MED LIST changes: +CYCL-837 PO
--- NOTE | 2025-05-24 10:06 | ECG ---
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
--- NOTE | 2025-05-24 10:49 | ED.PDOC ---
History of Present Illness HPI Comments 34 year old male with a Social Hx of Marijuana abuse presents to the ED for the c/c of Chest pain. Pt states that he has had CP for the past 1x week but has since worsened last night prompting his visit to the ED. Pt states that he is having Left Sided non-radiating,tight cp, with associated SOB, and confusion that took place last night. No other symptoms or modifying factors reported at this time. Patient is alert and oriented x4 and has a stable gait. Chief Complaint: Chest Pain Time Seen by MD: 10:46 Primary Care Provider: EVANGELISTA Reviewed Notes: Nurses Notes, Medications, Allergies Allergies: Coded Allergies: NO KNOWN ALLERGIES (Unverified , 09/12/18) Home Meds Active Scripts Cyclobenzaprine Hcl (Cyclobenzaprine Hcl) 5 Mg Tab, 1 TAB PO TID PRN for 5 Days, #15 TAB Prov:MAGNO MERCADO MD 05/12/25 Lidocaine (LIDODERM 5% TOPICAL PATCH) 1 Patch Ph, 1 PATCH TOP DAILY for 30 Days, #30 PATCH 0 Refills Prov:CLAUDIA WONG NP 05/10/25 Methocarbamol (Methocarbamol) 500 Mg Tab, 500 MG PO Q8HP PRN for 10 Days, #30 T AB 0 Refills Prov:CLAUDIA WONG NP 05/10/25 Reported Medications Citalopram Hydrobromide (Citalopram Hydrobromide) 10 Mg Tab, 10 MG PO DAILY for 30 Days, MG 09/12/18 Hydralazine Hcl (Hydralazine Hcl) 25 Mg Tab, 25 MG PO QID for 30 Days, MG 09/12/18 Buspirone Hcl (Buspirone Hcl) 10 Mg Tab, 10 MG PO HS for 30 Days, MG 09/12/18 Buspirone Hcl (Buspirone Hcl) 5 Mg Tab, 5 MG PO Q12HR for 30 Days, MG 09/12/18 Mirtazapine (Mirtazapine Oral Disintegrating Tablet) 15 Mg Tab, 15 MG PO HS, TAB 09/12/18 Information Source: Patient Mode of Arrival: Ambulatory Severity: Mild Timing: Hours Duration: Since onset, Hours Prehospital treatment: None Past Medical History PAST MEDICAL HISTORY: Anxiety, Depression, Schizophrenia Family History Family History: No family hx of DM Social History Smoker: Non-Smoker Alcohol: Sober Drugs: Marijuana Lives In: Home Constitutional: denies: chills, diaphoresis, fatigue, fever, malaise, sweats, weakness, others EENTM: denies: blurred vision, double vision, ear bleeding, ear discharge, ear drainage, ear pain, ear ringing, eye pain, eye redness, hearing loss, mouth pain, mouth swelling, nasal discharge, nose bleeding, nose congestion, nose pain, photophobia, tearing, throat pain, throat swelling, voice changes, others Respiratory: reports: SOB at rest, shortness of breath; denies: cough, hemoptysis, orthopnea, SOB with excertion, stridor, wheezing, others Cardiovascular: reports: chest pain; denies: dizzy spells, diaphoresis, Dyspnea on exertion, edema, irregular heart beat, left arm pain, lightheadedness, palpitations, PND, syncope, others Gastrointestinal: denies: abdomen distended, abdominal pain, blood streaked bowels, constipated, diarrhea, dysphagia, difficulty swallowing, hematemesis, melena, nausea, poor appetite, poor fluid intake, rectal bleeding, rectal pain, vomiting, others Genitourinary: denies: burning, dysuria, flank pain, frequency, hematuria, incontinence, penile discharge, penile sore, pain, testicle pain, testicle swelling, urgency, others Neurological: denies: dizziness, fainting, headache, left sided numbness, left sided weakness, numbness, paresthesia, pre-existing deficit, right sided numbness, right sided weakness, seizure, speech problems, tingling, tremors, weakness, others Musculoskeletal: denies: back pain, gout, joint pain, joint swelling, muscle pain, muscle stiffness, neck pain, others Integumetry: denies: bruises, change in color, change in hair/nails, dryness, laceration, lesions, lumps, rash, wounds, others Allergic/Immunocompromised: denies: Difficulty Healing, Frequent Infections, Hives, Itching, others Hematologic/Lymphatic: denies: anemia, blood clots, easy bleeding, easy bruising, swollen glands, others Endocrine: denies: excessive hunger, excessive sweating, excessive thirst, excessive urination, flushing, intolerance to cold, intolerance to heat, unexplained weight gain, unexplained weight loss, others Psychiatric: denies: anxiety, bipolar disorder, depression, hopeless, panic disorder, schizophrenia, sleepless, suicidal, others All Other Systems: Reviewed and Negative Physical Exam General Appearance: No Apparent Distress HEENT: Normal ENT Inspection, Pharynx Normal, TMs Normal Neck: Full Range of Motion, Non-Tender, Normal, Normal Inspection Respiratory: Lungs Clear, No Accessory Muscle Use, No Respiratory Distress, Normal Breath Sounds, Other (Minimal tenderness to the left chest) Cardiovascular: No Edema, No JVD, No Murmur, No Gallop, Normal Peripheral Pulses, Regular Rate/Rhythm Breast Exam: Deferred Gastrointestinal: No Organomegaly, Non Tender, No Pulsatile Mass, Normal Bowel Sounds, Soft Genitalia: Deferred Pelvic: Deferred Rectal: Deferred Extremities: No calf tenderness, Normal capillary refill, Normal inspection, Normal range of motion, Non-tender, No pedal edema Musculoskeletal : Apperance: Normal Neurologic: Alert, manager of revenue II-XII nml as Tested, No Motor Deficits, Normal Affect, Normal Mood, No Sensory Deficits Cerebellar Function: Normal Reflexes: Normal Skin: Dry, Normal Color, Warm Lymphatic: No Adenopathy Was a procedure done? Was a procedure done?: No EKG EKG : Pulse Rate (adult): 80 [place]: Normal Cardiac Rhythm: NSR Block: None Hypertrophy: None ST: Normal Differential Dx Considerations may include: Atypical chest pain, musculoskeletal pain, ACS, [place] X-Ray, Labs, Meds, VS Vital Signs Date Time Temp Pulse Resp B/P (MAP) Pulse Ox O2 Delivery O2 Flow Rate FiO2 05/24/25 11:13 98.0 74 16 135/84 (101) 97 98.0 05/24/25 11:13 74 15 97 Room Air 05/24/25 10:49 80 05/24/25 10:02 90 05/24/25 10:00 99.0 90 17 120/91 (101) 96 99.0 Lab Test 05/24/25 11:15 05/24/25 10:14 Range/Units Troponin I High Sensitivity Pending < 3 L </=54 ng/L White Blood Count 3.3 L 4.4-10.8 10^3/uL Red Blood Count 5.07 4.5-5.90 10^6/uL Hemoglobin 15.4 13.5-17.5 g/dL Hematocrit 45.0 41.0-53.0 % Mean Corpuscular Volume 88.7 80.0-100.0 fL Mean Corpuscular Hemoglobin 30.4 28.0-32.0 pg Mean Corpuscular Hemoglobin Concent 34.2 32.0-36.0 g/dL Red Cell Distribution Width 13.4 11.8-14.3 % Platelet Count 192 140-450 10^3/uL Mean Platelet Volume 8.0 6.9-10.8 fL Neutrophils (%) (Auto) 50.0 37.0-80.0 % Lymphocytes (%) (Auto) 37.3 10.0-50.0 % Monocytes (%) (Auto) 9.2 0.0-12.0 % Eosinophils (%) (Auto) 2.5 0.0-7.0 % Basophils (%) (Auto) 1.0 0.0-2.0 % Neutrophils # (Auto) 1.6 1.6-8.6 10 ^3/uL Lymphocytes # (Auto) 1.2 0.4-5.4 10 ^3/uL Monocytes # (Auto) 0.3 0-1.3 10 ^3/uL Eosinophils # (Auto) 0.1 0-0.8 10 ^3/uL Basophils # (Auto) 0 0-0.2 10 ^3/uL Nucleated Red Blood Cells 0.1 % Sodium Level 141 136-145 mmol/L Potassium Level 4.0 3.5-5.1 mmol/L Chloride Level 105 98-107 mmol/L Carbon Dioxide Level 30 20-31 mmol/L Anion Gap 6 5-15 Blood Urea Nitrogen 10 9-23 mg/dL Creatinine 1.06 0.700-1.30 mg/dL Glomerular Filtration Rate Calc 96 >90 mL/min BUN/Creatinine Ratio 9.4 L 10.0-20.0 Serum Glucose 95 74-106 mg/dL Calcium Level 9.9 8.7-10.4 mg/dL Current Medications Medications (Trade) Dose Ordered Sig/Vinh Route Start Time Stop Time Status Last Admin Aspirin 162 mg ONCE ONCE PO 05/24/25 10:45 05/24/25 10:52 DC 05/24/25 11:09 The chest x-ray is negative The patient was given aspirin 162 mg by mouth The patient's CBC is within normal limits The chemistry panel is within normal limits The troponin levels negative At this time we feel that the patient's pain is secondary to musculoskeletal pain The patient will return to the emergency department's the condition worsens. Images Reviewed?: Images reviewed and evaluated by me Time of 1ST Reevaluation: 11:16 Reevaluation 1ST: Unchanged Patient Education/Counseling: Diagnosis, Treatment, Prognosis, Need For Follow Up Family Education/Counseling: No Family Present SEPSIS Sepsis Screen Date sepsis recognized/suspect: May 24, 2025 Time Sepsis recognized/suspect: 1000 Recent Procedure: No On Antibiotic Therapy: No Respiratory Rate >20: No Heart Rate >90: No Temp<36 C (96.8 F) or >38.3 C: No SBP <90 or MAP <65 mmHG: No New Acute Mental Status Change: No Is the patient on CPAP, BIPAP,: No Physician Orders Troponin-I Hs (05/24/25 11:04) Troponin-I Hs (05/24/25 13:04) Electrocardigram (05/24/25 11:04) Electrocardigram (05/24/25 13:04) Chest Two Views Routine (05/24/25 10:45) Urinalysis (05/24/25 10:45) Drug Screen (05/24/25 10:45) Vital Signs Date Time Temp Pulse Resp B/P (MAP) Pulse Ox O2 Delivery O2 Flow Rate FiO2 05/24/25 11:13 98.0 74 16 135/84 (101) 97 98.0 05/24/25 11:13 74 15 97 Room Air 05/24/25 10:49 80 05/24/25 10:02 90 05/24/25 10:00 99.0 90 17 120/91 (101) 96 99.0 Laboratory Tests Test 05/24/25 10:14 White Blood Count 3.3 10^3/uL (4.4-10.8) L Medications Medications Dose Ordered Sig/Vinh Route Start Time Stop Time Status Last Admin Dose Admin Aspirin 162 mg ONCE ONCE PO 05/24/25 10:45 05/24/25 10:52 DC 05/24/25 11:09 Departure 1 Departure Time of Disposition: 11:31 Impression: Primary Impression: Musculoskeletal chest pain Disposition: 01 HOME / SELF CARE / HOMELESS Condition: Fair Discharged With: Self Critical Care Note Critical Care Time?: No Stability Stability form required: No Heart Score Heart Score: Heart Score Response (Comments) Value History N/A 0 EKG N/A 0 Age N/A 0 Risk Factors N/A 0 Troponin N/A 0 Total 0 I personally scribed for JANNIE HDZ MD ([email or web address]) on 05/24/25 at 10:49. Electronically submitted by Zheng Negrete ([email or web address]). JANNIE HDZ MD May 24, 2025 10:49
[2025-05-24 11:01] LABS: Chloride 105 mmol/L (98-107); Potassium 4.0 mmol/L (3.5-5.1); Sodium 141 mmol/L (136-145)
[2025-05-24 11:02] LABS: Anion Gap 6 (5-15); Carbon Dioxide 30 mmol/L (20-31)
[2025-05-24 11:03] LABS: Calcium 9.9 mg/dL (8.7-10.4)
[2025-05-24 11:07] LABS: Glucose 95 mg/dL (74-106)
[2025-05-24 11:08] LABS: BUN/Creatinine Ratio 9.4 (10.0-20.0); Blood Urea Nitrogen 10 mg/dL (9-23); Hematocrit 45.0 % (41.0-53.0); Hemoglobin 15.4 g/dL (13.5-17.5); Mean Corpuscular Hemoglobin 30.4 pg (28.0-32.0); Mean Corpuscular Volume 88.7 fL (80.0-100.0); Nucleated Red Blood Cells % 0.1 %
[2025-05-24 11:13] VITALS: BP 135/84; RESP 15; TEMP 98; O2SAT 97
--- NOTE | 2025-05-24 11:18 | DVH ---
EXAM: XY CHEST TWO VIEWS ROUTINE HISTORY: CP COMPARISON: Chest x-ray dated 11/18/2024. TECHNIQUE: Frontal and lateral views of the chest were performed. FINDINGS: No pneumothorax, pulmonary edema, pleural effusions, or consolidative infiltrates. There is mild cent ral peribronchial thickening. The heart is not enlarged. No fractures are identified about the bony thorax. IMPRESSION: Mild reactive airways disease. The lungs are otherwise clear.
[2025-05-24 11:36] VITALS: PULSE 61
--- NOTE | 2025-05-24 11:38 | ECG ---
[facility] Test Date: 2025-05-24 Test Time: 11:36:44 Pat Name: YAEL GREER Department: ER Room: Gender: M Drafter Mechanical: DAMASO : 1990 Requested By: SCOTT PICKARD Order Number: [id number] Reading MD: Measurements Intervals [place] Rate: 61 P: -23 SC: 122 QRS: 85 QRSD: 83 T: 35 QT: 370 QTc: 373 Interpretive Statements Sinus rhythm Please click the below link to view image of tracing.
== END 2025-05-24 11:43 | disposition home or self-care (01) ==
LOC: ER 09:54
DX: R07.89 Other chest pain (principal); R06.02 Shortness of breath; R14.0 Abdominal distension (gaseous); F20.9 Schizophrenia, unspecified; F32.A Depression, unspecified; F41.9 Anxiety disorder, unspecified; Z79.899 Other long term (current) drug therapy
CPT/HCPCS: 36415; 71046; 80048; 84484; 85025; 93005

== ENCOUNTER 2025-10-01 12:10 | Emergency (ER) | payer MEDICAID ==
[~2025-10-01] VITALS: Ht 182.9 cm; Wt 72.6 kg
[2025-10-01] MEDS: diazePAM 2 MG TAB PO ONE (14:36)
[2025-10-01] MEDS: ACETAMINOPHEN 325 MG TAB PO ONE (14:36)
[2025-10-01 14:38] VITALS: BP 121/78; PULSE 75; RESP 18; TEMP 99; O2SAT 98
--- NOTE | 2025-10-01 14:57 | ED.PDOC ---
History of Present Illness HPI Comments 34-year-old male presents with chief complaint of posterior neck Ed mid to low back pain. Significant history for anxiety, depression, schizophrenia, polysubstance abuse. Patient is a poor historian. He reports ongoing pain for the past few days following initial onset after "laying on [his] couch." He also states on using heating pads and [id number] ibuprofen medication to manage pain with no relief for improvement. Patient denies on having any recent trauma, prior elements, or further pertinent history events. He denies having any numbness, tingling, weakness, headache, fever, or further acute symptoms. Chief Complaint: Back Pain Time Seen by MD: 13:20 Primary Care Provider: EVANGELISTA Yadav Notes: Nurses Notes, Medications, Allergies Allergies: Coded Allergies: NO KNOWN ALLERGIES (Unverified , 09/12/18) Home Meds Active Scripts Cyclobenzaprine Hcl (Cyclobenzaprine Hcl) 5 Mg Tab, 1 TAB PO TID for 7 Days, #21 TAB Prov:MAGNO MERCADO MD 10/01/25 Cyclobenzaprine Hcl (Cyclobenzaprine Hcl) 5 Mg Tab, 1 TAB PO TID PRN for 5 Days, #15 TAB Prov:MAGNO MERCADO MD 05/12/25 Lidocaine (LIDODERM 5% TOPICAL PATCH) 1 Patch Ph, 1 PATCH TOP DAILY for 30 Days, #30 PATCH 0 Refills Prov:CLAUDIA WONG NP 05/10/25 Methocarbamol (Methocarbamol) 500 Mg Tab, 500 MG PO Q8HP PRN for 10 Days, #30 TAB 0 Refills Prov:CLAUDIA WONG NP 05/10/25 Reported Medications Citalopram Hydrobromide (Citalopram Hydrobromide) 10 Mg Tab, 10 MG PO DAILY for 30 Days, MG 09/12/18 Hydralazine Hcl (Hydralazine Hcl) 25 Mg Tab, 25 MG PO QID for 30 Days, MG 09/12/18 Buspirone Hcl (Buspirone Hcl) 10 Mg Tab, 10 MG PO HS for 30 Days, MG 09/12/18 Buspirone Hcl (Buspirone Hcl) 5 Mg Tab, 5 MG PO Q12HR for 30 Days, MG 09/12/18 Mirtazapine (Mirtazapine Oral Disintegrating Tablet) 15 Mg Tab, 15 MG PO HS, TAB 09/12/18 Information Source: Patient Mode of Arrival: EMS Severity: Moderate Timing: Days Duration: Since onset Prehospital treatment: Pain Meds, Treatment (Heating pads) Past Medical History PAST MEDICAL HISTORY: Anxiety, Depression, Schizophrenia Family History Family History: No family hx of DM Social History Smoker: Non-Smoker Alcohol: Sober Drugs: Marijuana Lives In: Home All Other Systems: Reviewed and Negative (Comprehensive review of systems are negative unless otherwise stated in HPI) Physical Exam General Appearance: No Apparent Distress, Normal HEENT: Normal ENT Inspection, Pharynx Normal, TMs Normal Neck: Full Range of Motion, Non-Tender, Normal, Normal Inspection Respiratory: Chest Non-Tender, Lungs Clear, No Accessory Muscle Use, No Respiratory Distress, Normal Breath Sounds Cardiovascular: No Edema, No JVD, No Murmur, No Gallop, Normal Peripheral Pulses, Regular Rate/Rhythm Breast Exam: Deferred Gastrointestinal: No Organomegaly, Non Tender, No Pulsatile Mass, Normal Bowel Sounds, Soft Genitalia: Deferred Pelvic: Deferred Rectal: Deferred Extremities: No calf tenderness, Normal capillary refill, Normal inspection, Normal range of motion, Non-tender, No pedal edema Musculoskeletal : Apperance: Normal Neurologic: Alert, thread singer II-XII nml as Tested, No Motor Deficits, Normal Affect, Normal Mood, No Sensory Deficits Cerebellar Function: Normal Reflexes: Normal Skin: Dry, Normal Color, Warm Lymphatic: No Adenopathy Was a procedure done? Was a procedure done?: No Differential Dx Considerations may include: Lumbar sprain, lumbar radiculopathy, degenerative disc disease, fractures, dislocations, musculoskeletal pain, among others X-Ray, Labs, Meds, VS Vital Signs Date Time Temp Pulse Resp B/P (MAP) Pulse Ox O2 Delivery O2 Flow Rate FiO2 10/01/25 14:38 99.0 75 18 121/78 (92) 98 99.0 10/01/25 14:38 75 18 98 Room Air 10/01/25 14:36 99.0 10/01/25 12:44 98.1 72 18 118/66 100 98.1 Time of 1ST Reevaluation: 13:50 Reevaluation 1ST: Unchanged Patient Education/Counseling: Diagnosis, Treatment, Need For Follow Up Family Education/Counseling: No Family Present Additional Information Additional historians: None Previous medical visits reviewed: None Additional imaging reviewed: None Labs ordered: None SEPSIS Sepsis Screen Date sepsis recognized/suspect: Oct 01, 2025 Time Sepsis recognized/suspect: 1220 Recent Procedure: No On Antibiotic Therapy: No Respiratory Rate >20: No Heart Rate >90: No Temp<36 C (96.8 F) or >38.3 C: No SBP <90 or MAP <65 mmHG: No New Acute Mental Status Change: No Is the patient on CPAP, BIPAP,: No Vital Signs Date Time Temp Pulse Resp B/P (MAP) Pulse Ox O2 Delivery O2 Flow Rate FiO2 10/01/25 14:38 99.0 75 18 121/78 (92) 98 99.0 10/01/25 14:38 75 18 98 Room Air 10/01/25 14:36 99.0 10/01/25 12:44 98.1 72 18 118/66 100 98.1 Departure 1 Departure Time of Disposition: 06:52 (Patient with a lumbar sprain. We will discharge patient home) Impression: Primary Impression: Lumbar sprain Additional Impression: Lumbar radiculopathy Disposition: HOME / SELF CARE / HOMELESS Condition: Stable Additional Instructions: You likely sprained your muscles. You were prescribed muscle relaxers. For pain you can take the followinam: Ibuprofen 400mg with food Noon: Acetaminophen 1000mg 4pm: Ibuprofen 400mg with food 8pm: Acetaminophen 1000mg You should follow up with your regular doctor within one week to ensure you are doing better. If your symptoms worsen or you have any other concerns then please return to the ER. e-Prescriptions Cyclobenzaprine Hcl (Cyclobenzaprine Hcl) 5 Mg Tab 1 TAB PO TID for 7 Days, #21 TAB Prov: MAGNO MERCADO MD 10/01/25 Discharged With: Self Critical Care Note Critical Care Time?: No Stability Stability form required: No Heart Score Heart Score: Heart Score Response (Comments) Value History N/A 0 EKG N/A 0 Age N/A 0 Risk Factors N/A 0 Troponin N/A 0 Total 0 I personally scribed for MAGNO MERCADO MD ([email or web address]) on 10/01/25 at 14:57. Electronically submitted by Stu Colunga ([email or web address]). MAGNO MERCADO MD Oct 01, 2025 14:57
== END 2025-10-01 14:46 | disposition home or self-care (01) ==
LOC: ER 12:10 → EDBD 12:10 → ER 14:46
DX: S33.5XXA Sprain of ligaments of lumbar spine, initial encounter (principal); M54.16 Radiculopathy, lumbar region; Z79.899 Other long term (current) drug therapy; X58.XXXA Exposure to other specified factors, initial encounter; Y93.89 Activity, other specified; Y92.89 Other specified places as the place of occurrence of the external cause; Y99.8 Other external cause status